=== PATIENT | female | born 1980 | race Caucasian/White ===

== ENCOUNTER 2019-06-30 19:30 | Emergency (ER) | payer OTHER ==
[2019-06-30 19:38] VITALS: BMI 19.3
--- NOTE | 2019-06-30 19:39 | PDOC ---
Rapid Medical Evaluation Time Seen by Provider: 06/30/19 19:35 Medical Evaluation: Allergies Allergy/AdvReac Type Severity Reaction Status Date / Time ciprofloxacin [From Cipro] Allergy Verified 03/06/14 01:42 ciprofloxacin HCl Allergy Verified 03/06/14 01:42 [From Cipro] Penicillins Allergy Verified 03/06/14 01:41 06/30/19 19:35 Pt presents with vaginal bleeding x2 hours ago. States she is approximately 8 weeks . LMP 05/05/19. Exam: ambulatory, NAD Orders: Labs, TVUS, T&S Pt to proceed to the ER for further evaluation Discharge Disposition - Diagnosis Vaginal bleeding - Referrals - Patient Instructions - Post Discharge Activity
--- NOTE | 2019-06-30 20:39 | PDOC ---
History of Present Illness - General Chief Complaint: Vaginal Bleeding Stated Complaint: VAGINAL BLEEDING Time Seen by Provider: 06/30/19 19:35 - History of Present Illness Initial Comments: Ms. Lambert is a 39 y/o female A2, LNMP first week of May, presenting today with two positive urine tests and vaginal spotting. Reports minimal vaginal bleeding that started today, not enough to saturate 1 pad. Denies fever, dizziness, dysuria, hematuria. Denies chest pain, shortness of breath, abdominal pain, back pain. Denies vaginal discharge. PMH: depression Meds: wellbutrin SurgHx: left salpingo-oopherectomy Past History - Past Medical History Allergies/Adverse Reactions: Allergies Allergy/AdvReac Type Severity Reaction Status Date / Time ciprofloxacin [From Cipro] Allergy Verified 06/30/19 19:36 ciprofloxacin HCl Allergy Verified 06/30/19 19:36 [From Cipro] Penicillins Allergy Verified 06/30/19 19:36 Home Medications: Ambulatory Orders Acetaminophen/Caffeine/Butalb [Fioricet -] 1 tab PO Q6H PRN 03/06/14 Lactobacillus 3/Fos/Pantethine [Probiotic & Acidophilus Cap] 1 each PO DAILY # 10 capsule 03/06/14 COPD: No - Reproductive History Is Patient Now?: Yes Therapeutic (s) & number: No - Suicide/Smoking/Psychosocial Hx Smoking History: Never smoked Review of Systems - Review of Systems Comments:: GENERAL/CONSTITUTIONAL: No fever or chills. No weakness._ HEAD, EYES, EARS, NOSE AND THROAT: No change in vision. No change in hearing. No sore throat._ CARDIOVASCULAR: No chest pain or shortness of breath_ RESPIRATORY: Denies cough, hemoptysis_ GASTROINTESTINAL: No nausea, vomiting, diarrhea or constipation._ GENITOURINARY: No dysuria, frequency, or change in urination. Reports minimal vaginal spotting. MUSCULOSKELETAL: No joint or muscle swelling or pain. No neck or back pain._ SKIN: No rash_ NEUROLOGIC: No headache, vertigo, loss of consciousness, or change in strength/ sensation._ ENDOCRINE: No increased thirst. No abnormal weight change_ HEMATOLOGIC/LYMPHATIC: No anemia, easy bleeding, or history of blood clots._ ALLERGIC/IMMUNOLOGIC: No hives or skin allergy._ *Physical Exam - Vital Signs Last Vital Signs Temp Pulse Resp BP Pulse Ox 98.4 F 101 H 18 119/72 98 06/30/19 19:36 06/30/19 19:36 06/30/19 19:36 06/30/19 19:36 06/30/19 19:36 - Physical Exam Comments: GENERAL: Awake, alert, and oriented to person/place/time, in no acute distress_ HEAD: No signs of trauma, normocephalic, atraumatic _ EYES: PERRLA, EOMI, sclera anicteric, conjunctiva clear_ ENT: Hearing grossly normal, nares patent, oropharynx clear without exudates. No uvular deviation. Moist mucosa_ NECK: Normal ROM, supple, no lymphadenopathy, JVD, or masses_ LUNGS: No distress, speaks in full sentences, clear to auscultation bilaterally _ HEART: Regular rate and rhythm, normal S1 and S2, no murmurs appreciated, peripheral pulses normal and equal bilaterally._ ABDOMEN: Soft, nontender, normoactive bowel sounds. No guarding, no rebound. No masses_ EXTREMITIES: Normal inspection, Normal range of motion, no edema. No clubbing or cyanosis_ NEUROLOGICAL: Cranial nerves II through XII grossly intact. Normal speech, normal gait, no focal sensorimotor deficits _ SKIN: Warm, Dry, normal turgor, no rashes or lesions noted_ ED Treatment Course - LABORATORY CBC & Chemistry Diagram: 06/30/19 20:15 Medical Decision Making - Medical Decision Making 39F A2 LNMP first week of May, 2 positive home urine tests, s/p left salpingoopherectomy, presenting with 1 day of minimal vaginal spotting. DDx includes threatened Ab vs ectopic vs normal IUP. Obtain CBC, T+S, TVUS, beta HCG, 06/30/19 2200 Labs reviewed. Pt is not anemic. beta hcg elevated > 5000. 06/30/19 22:36 Pt signed out to Dr. Middleton. Plan to d/c home pending TVUS read, f/u OB appt with Dr. Mao tomorrow. *DC/Admit/Observation/Transfer Diagnosis at time of Disposition: Vaginal bleeding, Threatened in early - Discharge Dispostion Disposition: HOME Condition at time of disposition: Stable - Referrals Referrals: ON STAFF,NOT [Primary Care Provider] - Yousif Umanzor MD [Staff Physician] - - Patient Instructions Printed Discharge Instructions: DI for Threatened Additional Instructions: Please keep your director of professional services appointment tomorrow - Post Discharge Activity
[2019-06-30 20:40] LABS: BASO % 0.4 % (0-2.0); EOS % 0.9 % (0-4.5); HEMOGLOBIN 14.7 GM/dL (10.7-15.3); LYMPH % 21.1 % (8-40); MCH 32.7 pg (25.7-33.7); MCHC 34.2 g/dl (32.0-36.0); MEAN CELL VOLUME 95.6 fl (80-96); MEAN PLT VOLUME 10.5 fl (7.5-11.1); NEUT % 69.6 % (42.8-82.8); PLATELET COUNT 210 K/MM3 (134-434); RDW 12.8 % (11.6-15.6); WHITE BLOOD COUNT 6.8 K/mm3 (4.0-10.0)
[2019-06-30 21:02] LABS: EPI CELLS 2.2 /HPF (0-5/HPF); HYALINE CASTS 2 /lpf (0-8); PH,URINE 5.5 (5.0-8.0); URINE APPEARANCE CLEAR; URINE BACTERIA 33.5 /hpf (NEGATIVE); URINE BILIRUBIN NEGATIVE (NEGATIVE); URINE COLOR YELLOW; URINE GLUCOSE (UA) NEGATIVE (NEGATIVE); URINE KETONE NEGATIVE (NEGATIVE); URINE LEUK ESTERASE NEGATIVE (NEGATIVE); URINE NITRITE NEGATIVE (NEGATIVE); URINE PROTEIN NEGATIVE (NEGATIVE); URINE RBC 2 /hpf (0-4); URINE UROBILINOGEN 0.2 mg/dL (0.2-1.0); URINE WBC 1 /hpf (0-5)
--- NOTE | 2019-06-30 21:54 | PDOC ---
Documentation entered by Martha Guthrie SCRIBE, acting as scribe for Lennie Middleton MD. Lennie Middleton MD: This documentation has been prepared by the Jerri pagan Sammi, SCRIBE, under my direction and personally reviewed by me in its entirety. I confirm that the documentation accurately reflects all work, treatment, procedures, and medical decision making performed by me. Attending Attestation - Resident Resident Name: Omer Vazquez - ED Attending Attestation I have performed the following: I have examined & evaluated the patient, The case was reviewed & discussed with the resident, I agree w/resident's findings & plan, Exceptions are as noted - HPI HPI: 06/30/19 20:29 The patient is a 39 year old A2 female who presents to the emergency department for evaluation of 1 day of vaginal spotting. Denies dysuria , hematuria, CP, SOB. Denies all other complaints. LMP early May. - Physicial Exam PE: 06/30/19 21:51 wnwd 39 yo female head ncat neck supple lungs cta b/l cvs [id number] abd no rebound pelvic refer to Dr Vazquez's physical exam ext no edema neuro axox3,ambulatory - Medical Decision Making 06/30/19 21:52 pt in Ultrasound diff includes threatened ab,torsion,ectopic ,ruptured ovarian cyst 06/30/19 23:04 [id number] 06/30/19 23:05 she is B- and will need aprogram. -Ultrasound shows a single viable intrauterine gestation at approximately 6 weeks in 8 days. Embryonic cardiac rate 85 bpm, consistent with bradycardia. There is no subchorionic implantation bleed. There is no obviousuterine pathology. There is a 1.2 cm right ovarian folliclewithout any evidence of right ovarian torsion Left ovary not visualized, consistent with provided surgical history bleeding and is Rh negaitve ,will give rhogam Impression threatened AB plan follow-up with [facility] tomorrow 06/30/19 23:10
[2019-06-30] MEDS ORDERED: RHO(D) IMMUNE GLOBULIN 1,500 UNIT DISP.SYRIN IM ONE (23:09)
--- NOTE | 2019-06-30 23:23 | PDOC ---
*Physical Exam - Vital Signs Last Vital Signs Temp Pulse Resp BP Pulse Ox 97.9 F 77 18 119/69 99 06/30/19 22:18 06/30/19 22:18 06/30/19 19:36 06/30/19 22:18 06/30/19 22:18 ED Treatment Course - LABORATORY CBC & Chemistry Diagram: 06/30/19 20:15 - ADDITIONAL ORDERS Additional order review: Laboratory Results 06/30/19 06/30/19 06/30/19 20:17 20:15 20:15 Beta HCG, Quant 5890.7 Urine Color Yellow Urine Appearance Clear Urine pH 5.5 Ur Specific [place] 1.015 Urine Protein Negative Urine Glucose (UA) Negative Urine Ketones Negative Urine Blood 3+ H Urine Nitrite Negative Urine Bilirubin Negative Urine Urobilinogen 0.2 Ur Leukocyte Esterase Negative Urine WBC (Auto) 1 Urine RBC (Auto) 2 Urine Casts (Auto) 2 U Epithel Cells (Auto) 2.2 Urine Bacteria (Auto) 33.5 Blood Type B NEGATIVE Antibody Screen Negative 06/30/19 20:15 RBC 4.50 MCV 95.6 MCHC 34.2 RDW 12.8 MPV 10.5 Neutrophils % 69.6 Lymphocytes % 21.1 Monocytes % 8.0 Eosinophils % 0.9 Basophils % 0.4 *DC/Admit/Observation/Transfer Diagnosis at time of Disposition: Vaginal bleeding, Threatened in early - Discharge Dispostion Disposition: HOME Condition at time of disposition: Stable - Referrals Referrals: ON STAFF,NOT [Primary Care Provider] - Yousif Umanzor MD [Staff Physician] - - Patient Instructions Printed Discharge Instructions: DI for Threatened Additional Instructions: Please keep your [employer] appointment tomorrow - Post Discharge Activity
[2019-07-01 00:20] VITALS: TEMP 97.8
[2019-07-01 00:27] VITALS: BP 113/67; PULSE 77
== END 2019-07-01 00:26 | disposition home or self-care (01) ==
LOC: JER 19:30
PROC: 3E0234Z Introduction of Serum, Toxoid and Vaccine into Muscle, Percutaneous Approach (ICD-10-PCS; principal; 2019-06-30)
DX: O26.891 Other specified pregnancy related conditions, first trimester (principal); O20.0 Threatened abortion; O36.0910 Maternal care for other rhesus isoimmunization, first trimester, not applicable or unspecified; Z3A.08 8 weeks gestation of pregnancy
CPT/HCPCS: 36415; 76817-TC; 81003; 84702; 85025; 86850; 86900; 86901; 86999; 87077; 87086; 99284-25; J1561

== ENCOUNTER 2019-07-16 12:33 | Day surgery (SDC) | payer OTHER ==
[2019-07-14 17:45] VITALS: BMI 19.3
[2019-07-16] MEDS ORDERED: MIDAZOLAM HCL 2 MG/2 ML SINGLE DOSE VIAL ONE (14:09)
[2019-07-16] MEDS ORDERED: PROPOFOL 20 ML ONE (14:09)
--- NOTE | 2019-07-16 14:12 | HP ---
History & Physical Update - Physical Physical: No Change - Assessment Assessment: No Change - Plan Plan: No Change (h&P reviwed , no changes , for suction D&C)
[2019-07-16] MEDS ORDERED: ceFAZolin SODIUM 1 GM VIAL IVPB ONE (14:20)
[2019-07-16] MEDS ORDERED: ONDANSETRON 4 MG/2 ML VIAL IVPUSH PRN ×2 (14:47→15:12)
[2019-07-16] MEDS ORDERED: IBUPROFEN 600 MG TABLET (FP) PO PRN (14:47)
[2019-07-16] MEDS ORDERED: oxyCODONE HCL 5 MG TABLET PO PRN (14:47)
[2019-07-16] MEDS ORDERED: IBUPROFEN 800 MG/8 ML IJ IVPB PRN (14:47)
[2019-07-16] MEDS ORDERED: ELECTROLYTE-148 SOLN 1,000 ML IV SCH (15:00)
[2019-07-16] MEDS ORDERED: ACETAMINOPHEN 1000 MG/100 ML VIAL (NON FORMULARY) IVPB ONE ×2 (15:00→15:13)
[2019-07-16] MEDS ORDERED: ACETAMINOPHEN INJECTION 100 ML IVPB ONE (15:04)
--- NOTE | 2019-07-16 15:09 | OP ---
DATE OF OPERATION: 07/16/2019 PREOPERATIVE DIAGNOSIS: Incomplete . POSTOPERATIVE DIAGNOSIS: Incomplete . PROCEDURE: Suction dilation and curettage. SURGEON: Yousif Umanzor MD ANESTHESIA: General. ESTIMATED BLOOD LOSS: 50 mL. OPERATION: Patient was taken to operating room under adequate general anesthesia. Abdomen and perineum were prepped and draped. Examination under anesthesia revealed external genitalia to be normal, vagina was normal. Cervix was clean, no lesion. Uterus normal size. Adnexa, no masses were palpable. Then, with the weighted speculum in the vagina, anterior lip of the cervix was grasped with single-tooth tenaculum. Cervix was slightly dilated with Hegar dilators and then suction curette was inserted and the contents were suctioned. Patient tolerated the procedure well, left the OR in good condition. YOUSIF UMANZOR M.D. [id number]
[2019-07-16] MEDS ORDERED: PROMETHAZINE HCL 25 MG/1 ML VIAL IVPUSH PRN (15:12)
[2019-07-16] MEDS ORDERED: LACTATED RINGERS SOLUTION 1,000 ML IV SCH (15:15)
[2019-07-16 16:06] VITALS: TEMP 98.1
[2019-07-16 17:21] VITALS: BP 98/58; PULSE 66
--- NOTE | 2019-07-20 19:12 | PATH ---
Surgical Pathology Report Patient Name: VICKY HUERTA [facility]. Rec. #: [id number] /Age/Gender: 1980 (Age: 39) / F Account: [id number] Location: [facility] SURGICAL Taken: 07/16/2019 Received: 07/17/2019 Reported: 07/20/2019 Physicians: Yousif Umanzor M.D. Specimen(s) Received PRODUCTS OF CONCEPTION Clinical History Incomplete Final Diagnosis PRODUCTS OF CONCEPTION, SUCTION DILATION AND CURETTAGE: RARE NECROTIC CHORIONIC VILLI, DECIDUA, AND GESTATIONAL ENDOMETRIUM IN A BACKGROUND OF MARKED ACUTE INFLAMMATORY EXUDATE AND BLOOD CONSISTENT WITH PRODUCTS OF CONCEPTION. Electronically Signed Tara Stark M.D. Gross Description Received fresh labeled "products of conception," is a 3 x 2 x 0.5 cm aggregate of caballero red soft tissue fragments. Tissue suggestive of villous tissue identified. No definite somatic tissue is identified. Entire specimen is submitted in one cassette S/07/17/2019 san/07/17/2019
== END 2019-07-16 17:26 | disposition home or self-care (01) ==
LOC: JASU-SURG 12:33
PROVIDERS: ATTEND Obstetrics & Gynecology
PROC: 10D17ZZ Extraction of Products of Conception, Retained, Via Natural or Artificial Opening (ICD-10-PCS; principal; 2019-07-16 14:00)
DX: O03.4 Incomplete spontaneous abortion without complication (principal)
CPT/HCPCS: 88305-TC; 94760; J0131

== ENCOUNTER 2021-04-25 06:45 | Inpatient (IN) | payer OTHER ==
[2021-04-25] MEDS ORDERED: CITRIC ACID/SODIUM CITRATE 30 ML UNIT-DOSE CUP PO ONE (07:33)
[2021-04-25] MEDS ORDERED: ELECTROLYTE-148 SOLN 1,000 ML IV SCH (07:45)
[2021-04-25 09:05] VITALS: BMI 26.1
[2021-04-25] MEDS ORDERED: ONDANSETRON 4 MG/2 ML VIAL IVPUSH PRN (10:14)
[2021-04-25] MEDS ORDERED: ACETAMINOPHEN 325 MG TABLET (FP) PO PRN (10:14)
[2021-04-25] MEDS ORDERED: IBUPROFEN 600 MG TABLET (FP) PO PRN ×2 (10:14→12:30)
[2021-04-25] MEDS ORDERED: morphine SULFATE/PF 0.5 MG/ML (2cc Syringe - QUVA) ONE (11:18)
[2021-04-25] MEDS ORDERED: KETAMINE HCL 500 MG/10 ML VIAL ONE (11:33)
[2021-04-25] MEDS ORDERED: MIDAZOLAM HCL 2 MG/2 ML SINGLE DOSE VIAL ONE (11:47)
[2021-04-25] MEDS ORDERED: CLINDAMYCIN PHOSPHATE 600 MG/4 ML VIAL ONE (12:16)
[2021-04-25] MEDS ORDERED: OXYTOCIN 10 UNITS/ML VIAL ONE ×6 (12:17)
[2021-04-25] MEDS ORDERED: BENZOCAINE 20% 57 GM BOTTLE TP PRN (12:30)
[2021-04-25] MEDS ORDERED: diphenhydrAMINE HCL 25 MG CAPSULE (FP) PO PRN (12:30)
[2021-04-25] MEDS ORDERED: BENZOCAINE 28 GM HEMORRHOIDAL OINTMENT TP PRN (12:30)
[2021-04-25] MEDS ORDERED: WITCH HAZEL 50% (TUCKS) 40 PAD/JAR PAD TP PRN (12:30)
[2021-04-25] MEDS ORDERED: DEXTROSE 5%-LACTATED RINGERS 1,000 ML IV SCH (12:30)
[2021-04-25] MEDS ORDERED: METHYLERGONOVINE MALEATE 0.2 MG/1 ML AMP IM PRN (12:30)
[2021-04-25] MEDS ORDERED: IBUPROFEN 800 MG/8 ML IJ IVPB PRN (12:30)
[2021-04-25] MEDS ORDERED: OXYTOCIN 20 UNITS in 0.9% NS 20 UNIT/1,000 ML INFUS.BAG IV SCH (12:30)
[2021-04-25] MEDS ORDERED: oxyCODONE HCL 5 MG TABLET PO PRN (12:30)
[2021-04-25] MEDS: CLINDAMYCIN 600MG PREMIX IVPB 600 MG/50 ML BAG IVPB SCH (18:01)
[2021-04-25] MEDS: ACETAMINOPHEN/CAFFEINE/BUTALBITAL 1 TAB PO PRN (18:07)
[2021-04-25] MEDS: ACETAMINOPHEN 1000 MG/100 ML VIAL (NON FORMULARY) IVPB PRN (22:55)
[2021-04-26] MEDS: CLINDAMYCIN 600MG PREMIX IVPB 600 MG/50 ML BAG IVPB SCH ×2 (01:05→09:17)
[2021-04-26] MEDS: ACETAMINOPHEN/CAFFEINE/BUTALBITAL 1 TAB PO PRN (01:09)
[2021-04-26] MEDS: ACETAMINOPHEN 1000 MG/100 ML VIAL (NON FORMULARY) IVPB PRN (06:19)
[2021-04-26 08:37] LABS: BASO % 0.2 % (0-2.0); EOS % 0.9 % (0-4.5); HEMATOCRIT 29.6 % (32.4-45.2); LYMPH % 7.3 % (8-40); MCH 30.7 pg (25.7-33.7); MCHC 33.8 g/dl (32.0-36.0); MEAN CELL VOLUME 90.6 fl (80-96); MEAN PLT VOLUME 9.9 fl (7.5-11.1); MONO % 7.1 % (3.8-10.2); NEUT % 84.5 % (42.8-82.8); PLATELET COUNT 133 10^3/uL (134-434); RBC 3.27 M/mm3 (3.60-5.2); RDW 13.3 % (11.6-15.6); WHITE BLOOD COUNT 11.3 K/mm3 (4.0-10.0)
[2021-04-26] MEDS: ENOXAPARIN NA (PORCINE) 40 MG/0.4 ML DISP.SYRIN SQ SCH (09:17)
[2021-04-26] MEDS ORDERED: BISACODYL 10 MG SUPP.RECT PR PRN (12:30)
[2021-04-26] MEDS: oxyCODONE HCL 5 MG TABLET PO PRN ×3 (12:39→20:37)
[2021-04-26] MEDS: SIMETHICONE 80 MG TAB.CHEW (FP) PO PRN ×3 (12:40→20:36)
[2021-04-26] MEDS: ACETAMINOPHEN 650 MG/20.3 ML ORAL SOLUTION (CUPS) PO PRN ×2 (16:35→20:37)
[2021-04-27] MEDS: ACETAMINOPHEN 650 MG/20.3 ML ORAL SOLUTION (CUPS) PO PRN ×5 (00:36→22:19)
[2021-04-27] MEDS: SIMETHICONE 80 MG TAB.CHEW (FP) PO PRN ×4 (00:36→16:59)
[2021-04-27] MEDS: oxyCODONE HCL 5 MG TABLET PO PRN ×5 (00:37→22:20)
[2021-04-27] MEDS: ENOXAPARIN NA (PORCINE) 40 MG/0.4 ML DISP.SYRIN SQ SCH (10:03)
[2021-04-27] MEDS ORDERED: SENNOSIDES/DOCUSATE COMBO (SENNA PLUS) TABLET (UD) PO PRN (22:00)
[2021-04-28] MEDS: ACETAMINOPHEN 650 MG/20.3 ML ORAL SOLUTION (CUPS) PO PRN ×2 (03:48→09:35)
[2021-04-28] MEDS: oxyCODONE HCL 5 MG TABLET PO PRN (03:51)
[2021-04-28 08:14] LABS: BASO % 0.1 % (0-2.0); EOS % 2.5 % (0-4.5); HEMATOCRIT 31.4 % (32.4-45.2); HEMOGLOBIN 10.5 GM/dL (10.7-15.3); LYMPH % 13.1 % (8-40); MCH 30.6 pg (25.7-33.7); MCHC 33.6 g/dl (32.0-36.0); MEAN PLT VOLUME 9.3 fl (7.5-11.1); MONO % 6.6 % (3.8-10.2); NEUT % 77.7 % (42.8-82.8); PLATELET COUNT 195 10^3/uL (134-434); RBC 3.45 M/mm3 (3.60-5.2); RDW 13.8 % (11.6-15.6); WHITE BLOOD COUNT 9.3 K/mm3 (4.0-10.0)
[2021-04-28] MEDS: ENOXAPARIN NA (PORCINE) 40 MG/0.4 ML DISP.SYRIN SQ SCH (09:32)
[2021-04-28] MEDS: SIMETHICONE 80 MG TAB.CHEW (FP) PO PRN (09:38)
[2021-04-28 14:24] VITALS: BP 128/75; PULSE 74; TEMP 97.6
== END 2021-04-28 15:00 | disposition home or self-care (01) | DRG 788 ==
LOC: JLDR 06:45 → J3W 14:35
PROVIDERS: ADMIT Obstetrics & Gynecology; ATTEND Obstetrics & Gynecology
PROC: 10D00Z1 Extraction of Products of Conception, Low, Open Approach (ICD-10-PCS; principal; 2021-04-25)
DX: O34.219 Maternal care for unspecified type scar from previous cesarean delivery (principal); O30.043 Twin pregnancy, dichorionic/diamniotic, third trimester; O69.81X1 Labor and delivery complicated by cord around neck, without compression, fetus 1; O32.8XX2 Maternal care for other malpresentation of fetus, fetus 2; O99.344 Other mental disorders complicating childbirth; F41.9 Anxiety disorder, unspecified; F32.9 Major depressive disorder, single episode, unspecified; Z86.16 Personal history of COVID-19; Z3A.38 38 weeks gestation of pregnancy; Z37.2 Twins, both liveborn
CPT/HCPCS: 36415; 85025; C9803; J0131; U0003; U0005